=== PATIENT | female | born 1960 | race Caucasian/White ===

== ENCOUNTER 2017-07-06 14:33 | Inpatient (IN) | payer MEDICAID ==
[~2017-07-06] VITALS: Ht 177.8 cm; Wt 91.6 kg
[~2017-07-06 14:33] MED LIST: APAP/HYDROCODON1 T13 PO; COL100 PO; DIVALPROEX SOD500 M3 PO; FERROUS SULFAT325 M2 PO; FUROSEMIDE40 MG PO; LAC PO; LAXATIVE5 M1 RC; LEV500 PO; METOPROLOL SUC100 M1 PO; MULTI VITAMINS1 TA1 PO; NATURE'S BLEND400 I2 PO; NEU300 PO; NORCO1 TA2 PO; OYSTER SHELL C500 M3 PO; ROBL; SANOINT; SEROQUEL100 MG PO; TOPAMAX100 MG; ZESTRIL20 MG PO; ZOCOR10 MG PO
[2017-07-06 15:35] LABS: BASOPHIL % 0.4 % (0-2); PLATELET COUNT 230 x10^3mcL (130-400); RED CELL DISTRIBUTION WIDTH 14.7 % (11.5-14.5)
[2017-07-06 15:37] LABS: CALCIUM 9.1 mg/dL (8.5-10.1); CARBON DIOXIDE 27.8 mmol/L (21-32); CREATININE SERUM 1.1 mg/dL (0.6-1.0); POTASSIUM SERUM 4.9 mmol/L (3.5-5.1)
[2017-07-06 15:41] LABS: BILIRUBIN TOTAL 0.19 mg/dL (0.20-1.00); TOTAL PROTEIN, SERUM 7.6 g/dL (6.4-8.2)
[2017-07-06 15:42] LABS: ALBUMIN 2.8 g/dL (3.4-5.0)
[2017-07-06 15:53] LABS: microscopic required? YES; urine erythrocyte TRACE (NEGATIVE)
[2017-07-06] MEDS ORDERED: MULTIVITAMIN1 SGL PO (16:59)
[2017-07-06] MEDS ORDERED: ASPIR LOW81 MG PO (17:00)
[2017-07-06] MEDS ORDERED: POTASSIUM CHLO10 MEQ PO (17:00)
[2017-07-06] MEDS ORDERED: LASIX40 MG PO (17:00)
[2017-07-06] MEDS ORDERED: NEU300 PO (17:01)
[2017-07-06] MEDS ORDERED: SANOINT (17:02)
[2017-07-06] MEDS ORDERED: DEPAKOTE500 MG PO (17:02)
[2017-07-06] MEDS ORDERED: FERROUS SULFAT325 M2 PO (17:02)
[2017-07-06] MEDS ORDERED: ZOCOR10 MG PO (17:03)
[2017-07-06] MEDS ORDERED: TOPIRAMATE200 M1 PO (17:03)
[2017-07-06] MEDS ORDERED: NATURE'S BLEND500 M3 PO (17:04)
[2017-07-06] MEDS ORDERED: SEROQUEL100 MG PO (17:04)
[2017-07-06] MEDS ORDERED: LISINOPRIL10 MG PO (17:05)
[2017-07-06] MEDS ORDERED: LAXATIVE5 M1 RC (17:06)
[2017-07-06] MEDS ORDERED: EXPECTORANT DM120 ML PO (17:08)
[2017-07-06] MEDS ORDERED: ANUSOL-HC25 MG/SUPP RC (17:09)
[2017-07-06 17:57] VITALS: BP 115/55
[2017-07-06 18:02] VITALS: BP 115/55
[2017-07-06 19:35] LABS: AMPHETAMINE QUAL UR NONE DETECTED (NEG <=1000)
[2017-07-06 19:41] LABS: MAGNESIUM 2.4 mg/dL (1.8-2.4); PHOSPHOROUS 4.4 mg/dL (2.5-4.9)
[2017-07-06 19:42] LABS: CHOLESTEROL/HDL RATIO 3.6
[2017-07-06 19:50] LABS: T3 TOTAL 0.65 ng/mL
[2017-07-06 19:51] LABS: FREE T4 0.66 ng/dL (0.76-1.46); FREE THYROXINE INDEX 1.8 ug/dL (1.4-4.5); T4(THYROXINE) 4.9 ug/dL (4.7-13.3)
[2017-07-06 21:21] VITALS: BP 134/86
[2017-07-07 02:30] VITALS: Ht 177.8 cm; Wt 91.6 kg
[2017-07-07 04:51] VITALS: BP 108/56
[2017-07-07 06:12] VITALS: BP 122/60
[2017-07-07 07:31] LABS: BASOPHIL % 0.4 % (0-2); PLATELET COUNT 217 x10^3mcL (130-400); RED CELL DISTRIBUTION WIDTH 14.1 % (11.5-14.5)
[2017-07-07 07:51] LABS: CALCIUM 8.6 mg/dL (8.5-10.1); CARBON DIOXIDE 23.7 mmol/L (21-32); CHLORIDE SERUM 106 mmol/L (98-107); CREATININE SERUM 0.8 mg/dL (0.6-1.0); GFR1 > 60 mL/min; GLUCOSE SERUM 97 mg/dL (74-106); MAGNESIUM 2.1 mg/dL (1.8-2.4); POTASSIUM SERUM 4.9 mmol/L (3.5-5.1); SODIUM SERUM 137 mmol/L (136-145)
[2017-07-07 09:02] VITALS: BP 117/76
[2017-07-07 13:18] VITALS: BP 131/60
[2017-07-07 17:17] VITALS: BP 127/53
[2017-07-07 21:01] VITALS: BP 152/65
[2017-07-08 06:41] VITALS: BP 130/70
[2017-07-08 07:04] LABS: CALCIUM 8.5 mg/dL (8.5-10.1); CARBON DIOXIDE 23.1 mmol/L (21-32); CHLORIDE SERUM 107 mmol/L (98-107); CREATININE SERUM 0.6 mg/dL (0.6-1.0); GFR1 > 60 mL/min; GLUCOSE SERUM 93 mg/dL (74-106); POTASSIUM SERUM 4.4 mmol/L (3.5-5.1); SODIUM SERUM 137 mmol/L (136-145)
[2017-07-08 09:17] VITALS: BP 132/55
[2017-07-08 12:27] VITALS: BP 109/47
[2017-07-08 16:39] VITALS: BP 141/78
[2017-07-08 21:53] VITALS: BP 142/82
[2017-07-09 05:16] VITALS: BP 139/67
[2017-07-09 06:48] LABS: BASOPHIL % 0.2 % (0-2); PLATELET COUNT 185 x10^3mcL (130-400); RED CELL DISTRIBUTION WIDTH 13.7 % (11.5-14.5)
[2017-07-09 07:07] LABS: CARBON DIOXIDE 22.3 mmol/L (21-32); CHLORIDE SERUM 103 mmol/L (98-107); CREATININE SERUM 0.6 mg/dL (0.6-1.0); GFR1 > 60 mL/min; GLUCOSE SERUM 88 mg/dL (74-106); POTASSIUM SERUM 4.4 mmol/L (3.5-5.1); SODIUM SERUM 131 mmol/L (136-145)
[2017-07-09 09:45] VITALS: BP 132/64
[2017-07-09 17:05] VITALS: BP 170/83
[2017-07-09 17:48] VITALS: BP 136/63
[2017-07-09 21:00] VITALS: BP 147/73
[2017-07-10 04:00] VITALS: BP 144/82
[2017-07-10 06:52] LABS: BASOPHIL % 0.4 % (0-2); PLATELET COUNT 191 x10^3mcL (130-400); RED CELL DISTRIBUTION WIDTH 13.9 % (11.5-14.5)
[2017-07-10 07:07] LABS: CALCIUM 8.2 mg/dL (8.5-10.1); CARBON DIOXIDE 21.7 mmol/L (21-32); CHLORIDE SERUM 101 mmol/L (98-107); CREATININE SERUM 0.7 mg/dL (0.6-1.0); GFR1 > 60 mL/min; GLUCOSE SERUM 99 mg/dL (74-106); POTASSIUM SERUM 4.5 mmol/L (3.5-5.1); SODIUM SERUM 130 mmol/L (136-145)
[2017-07-10 09:09] VITALS: BP 151/78
[2017-07-10] MEDS ORDERED: LAC30L PO (12:44)
[2017-07-10] MEDS ORDERED: METOPROLOL TART25 M1 PO (12:44)
[2017-07-10 13:07] VITALS: BP 151/78
[2017-07-10 17:45] VITALS: BP 145/71
== END 2017-07-10 18:27 | DRG 279 ==
LOC: ED 14:33 → DU 16:37
PROVIDERS: Emergency Medicine; Family Medicine; ADMIT Family Medicine
DX: K72.90 Hepatic failure, unspecified without coma (principal); N17.0 Acute kidney failure with tubular necrosis; E43 Unspecified severe protein-calorie malnutrition; N39.0 Urinary tract infection, site not specified; F72 Severe intellectual disabilities; B96.20 Unspecified Escherichia coli [E. coli] as the cause of diseases classified elsewhere; E11.9 Type 2 diabetes mellitus without complications; I10 Essential (primary) hypertension; I48.92 Unspecified atrial flutter; F88 Other disorders of psychological development; E78.5 Hyperlipidemia, unspecified; D53.9 Nutritional anemia, unspecified; E78.00 Pure hypercholesterolemia, unspecified; Z68.31 Body mass index [BMI] 31.0-31.9, adult
CPT/HCPCS: 82962; 83880; 84439; 86580; J0696; J1956; J7030; J7040

== ENCOUNTER 2017-07-19 12:44 | Emergency (ER) | payer MEDICAID ==
[~2017-07-19] VITALS: Ht 157.5 cm; Wt 95.7 kg
[~2017-07-19 12:44] MED LIST changes: +ANUSOL-HC25 MG/SUPP RC; +ASPIR LOW81 MG PO; +DEPAKOTE500 MG PO; +EXPECTORANT DM120 ML PO; +LAC30L PO; +LASIX40 MG PO; +LISINOPRIL10 MG PO; +METOPROLOL TART25 M1 PO; +MULTIVITAMIN1 SGL PO; +NATURE'S BLEND500 M3 PO; +POTASSIUM CHLO10 MEQ PO; +TOPIRAMATE200 M1 PO
[2017-07-19 14:50] LABS: BASOPHIL % 0.5 % (0-2); PLATELET COUNT 272 x10^3mcL (130-400); RED CELL DISTRIBUTION WIDTH 13.9 % (11.5-14.5)
[2017-07-19 15:04] LABS: CALCIUM 9.2 mg/dL (8.5-10.1); CARBON DIOXIDE 31.2 mmol/L (21-32); CHLORIDE SERUM 97 mmol/L (98-107); CREATININE SERUM 0.6 mg/dL (0.6-1.0); GFR1 > 60 mL/min; GLUCOSE SERUM 93 mg/dL (74-106); POTASSIUM SERUM 4.2 mmol/L (3.5-5.1); SODIUM SERUM 133 mmol/L (136-145)
[2017-07-19 15:09] LABS: ALBUMIN 2.8 g/dL (3.4-5.0); ALKALINE PHOSPHATASE 66 U/L (46-116); ALT/SGPT 14 U/L (14-59); AST/SGOT 9 U/L (15-37); BILIRUBIN TOTAL 0.2 mg/dL (0.20-1.00); TOTAL PROTEIN, SERUM 7.2 g/dL (6.4-8.2)
[2017-07-19 18:17] VITALS: BP 134/79
== END 2017-07-19 18:17 | disposition home or self-care (01) ==
LOC: ED 12:44
PROVIDERS: Emergency Medicine
DX: R76.11 Nonspecific reaction to tuberculin skin test without active tuberculosis (principal); I10 Essential (primary) hypertension; E78.5 Hyperlipidemia, unspecified; Z88.0 Allergy status to penicillin; Z88.1 Allergy status to other antibiotic agents; Z79.899 Other long term (current) drug therapy
CPT/HCPCS: 36415

== ENCOUNTER 2017-07-24 23:40 | Emergency (ER) | payer MEDICAID ==
[2017-07-25 00:48] LABS: BASOPHIL % 0.4 % (0-2); PLATELET COUNT 193 x10^3mcL (130-400); RED CELL DISTRIBUTION WIDTH 14.5 % (11.5-14.5)
[2017-07-25 00:53] LABS: CALCIUM 8.7 mg/dL (8.5-10.1); CARBON DIOXIDE 26.5 mmol/L (21-32); CHLORIDE SERUM 93 mmol/L (98-107); CREATININE SERUM 0.8 mg/dL (0.6-1.0); GFR1 > 60 mL/min; GLUCOSE SERUM 88 mg/dL (74-106); POTASSIUM SERUM 4.7 mmol/L (3.5-5.1); SODIUM SERUM 126 mmol/L (136-145)
[2017-07-25 01:08] LABS: ALBUMIN 2.6 g/dL (3.4-5.0); ALKALINE PHOSPHATASE 59 U/L (46-116); ALT/SGPT 11 U/L (14-59); AST/SGOT 12 U/L (15-37); BILIRUBIN TOTAL 0.2 mg/dL (0.20-1.00); TOTAL PROTEIN, SERUM 6.8 g/dL (6.4-8.2)
[2017-07-25 01:54] LABS: microscopic required? YES; urine erythrocyte 1+ (NEGATIVE)
[2017-07-25 06:44] VITALS: BP 107/65
== END 2017-07-25 06:44 | disposition home or self-care (01) ==
LOC: ED 23:40
PROVIDERS: Emergency Medicine
DX: I95.9 Hypotension, unspecified (principal); G40.909 Epilepsy, unspecified, not intractable, without status epilepticus; I10 Essential (primary) hypertension; E78.5 Hyperlipidemia, unspecified; F72 Severe intellectual disabilities; Z88.0 Allergy status to penicillin; Z88.1 Allergy status to other antibiotic agents
CPT/HCPCS: 83880; J7030; Q0092

== ENCOUNTER 2019-05-12 09:58 | Emergency (ER) | payer MEDICAID ==
[~2019-05-12] VITALS: Ht 172.7 cm; Wt 113.4 kg
[2019-05-12 10:08] VITALS: Ht 172.7 cm; Wt 113.4 kg
[2019-05-12 14:27] VITALS: BP 138/89
== END 2019-05-12 14:27 | disposition home or self-care (01) ==
LOC: ED 09:58
DX: S80.12XA Contusion of left lower leg, initial encounter (principal); I10 Essential (primary) hypertension; Z88.0 Allergy status to penicillin; Z88.1 Allergy status to other antibiotic agents; Z86.69 Personal history of other diseases of the nervous system and sense organs; W18.30XA Fall on same level, unspecified, initial encounter; Y93.89 Activity, other specified; Y92.89 Other specified places as the place of occurrence of the external cause; Y99.8 Other external cause status
CPT/HCPCS: 90715; J1630; J2250

== ENCOUNTER 2019-06-15 15:44 | Emergency (ER) | payer MEDICAID ==
[~2019-06-15] VITALS: Ht 165.1 cm; Wt 136.1 kg
[2019-06-15 15:54] VITALS: Ht 165.1 cm; Wt 136.1 kg
[2019-06-15 16:35] LABS: BASOPHIL % 0.4 % (0-2); PLATELET COUNT 170 x10^3mcL (130-400); RED CELL DISTRIBUTION WIDTH 14.5 % (11.5-14.5)
[2019-06-15 16:49] LABS: CALCIUM 7.9 mg/dL (8.5-10.1); CARBON DIOXIDE 23.6 mmol/L (21-32); CHLORIDE SERUM 98 mmol/L (98-107); CREATININE SERUM 0.9 mg/dL (0.6-1.0); GFR1 > 60 mL/min; GLUCOSE SERUM 169 mg/dL (74-106); POTASSIUM SERUM 3.6 mmol/L (3.5-5.1); SODIUM SERUM 132 mmol/L (136-145)
[2019-06-15 17:04] LABS: ALBUMIN 2.7 g/dL (3.4-5.0); ALKALINE PHOSPHATASE 73 U/L (46-116); ALT/SGPT 20 U/L (14-59); AST/SGOT 7 U/L (15-37); BILIRUBIN TOTAL 0.35 mg/dL (0.20-1.00); TOTAL PROTEIN, SERUM 7.4 g/dL (6.4-8.2)
[2019-06-15 17:19] LABS: UA SPECIFIC GRAVITY 1.015 (1.005-1.035); microscopic required? YES; urine erythrocyte 3+ (NEGATIVE)
[2019-06-15 19:50] VITALS: BP 121/58
== END 2019-06-15 19:50 | disposition home or self-care (01) ==
LOC: ED 15:44
PROVIDERS: Emergency Medicine
DX: R53.1 Weakness (principal); N39.0 Urinary tract infection, site not specified; R21 Rash and other nonspecific skin eruption; F72 Severe intellectual disabilities; E66.9 Obesity, unspecified; I10 Essential (primary) hypertension; Z68.43 Body mass index [BMI] 50.0-59.9, adult; Z88.0 Allergy status to penicillin; Z88.1 Allergy status to other antibiotic agents
CPT/HCPCS: 36415; J3490; Q0092

== ENCOUNTER 2019-09-29 13:04 | Inpatient (IN) | payer MEDICAID ==
[~2019-09-29] VITALS: Ht 177.8 cm; Wt 114.0 kg
[2019-09-29 14:19] LABS: PLATELET COUNT 185 x10^3mcL (130-400)
[2019-09-29 14:33] LABS: RED CELL DISTRIBUTION WIDTH 14.7 % (11.5-14.5)
[2019-09-29 14:37] LABS: CALCIUM 8.6 mg/dL (8.5-10.1); CARBON DIOXIDE 26.8 mmol/L (21-32); CHLORIDE SERUM 105 mmol/L (98-107); CREATININE SERUM 0.9 mg/dL (0.6-1.0); GFR1 > 60 mL/min; GLUCOSE SERUM 183 mg/dL (74-106); POTASSIUM SERUM 4.2 mmol/L (3.5-5.1); SODIUM SERUM 142 mmol/L (136-145)
[2019-09-29 14:39] LABS: ALKALINE PHOSPHATASE 92 U/L (46-116); ALT/SGPT 20 U/L (14-59); AST/SGOT 13 U/L (15-37); BILIRUBIN TOTAL 0.3 mg/dL (0.20-1.00); LIPASE 85 IU/L (73-393); TOTAL PROTEIN, SERUM 7.6 g/dL (6.4-8.2)
[2019-09-29 14:40] LABS: ALBUMIN 2.3 g/dL (3.4-5.0)
[2019-09-29 15:06] LABS: BAND NEUTROPHIL 6 % (0-10); BASOPHIL 0 % (0-2); MONOCYTE 7 % (0-7); SEGMENTED NEUTROPHILS 81 % (37-75); rbc morphology (normal/abnorm) NORMAL (NORMAL)
[2019-09-29 15:35] LABS: microscopic required? YES; urine erythrocyte TRACE (NEGATIVE)
[2019-09-29 17:11] LABS: MAGNESIUM 2.1 mg/dL (1.8-2.4); PHOSPHOROUS 3.8 mg/dL (2.5-4.9)
[2019-09-29 17:12] LABS: CHOLESTEROL/HDL RATIO 3.7
[2019-09-29 17:18] LABS: FREE T4 0.69 ng/dL (0.76-1.46); FREE THYROXINE INDEX 1.7 ug/dL (1.4-4.5); T4(THYROXINE) 5.3 ug/dL (4.7-13.3)
[2019-09-29 17:33] LABS: T3 TOTAL 0.7 ng/mL
[2019-09-29 18:10] VITALS: BP 172/71
[2019-09-29 19:39] VITALS: BP 160/70
[2019-09-30 04:40] VITALS: BP 160/70
[2019-09-30 06:51] LABS: PLATELET COUNT 146 x10^3mcL (130-400)
[2019-09-30 06:57] LABS: RED CELL DISTRIBUTION WIDTH 15.4 % (11.5-14.5)
[2019-09-30 07:29] LABS: CARBON DIOXIDE 18.8 mmol/L (21-32); CHLORIDE SERUM 108 mmol/L (98-107); CREATININE SERUM 0.9 mg/dL (0.6-1.0); GFR1 > 60 mL/min; GLUCOSE SERUM 205 mg/dL (74-106); PHOSPHOROUS 2.2 mg/dL (2.5-4.9); POTASSIUM SERUM 3.4 mmol/L (3.5-5.1); SODIUM SERUM 139 mmol/L (136-145)
[2019-09-30 07:47] VITALS: BP 109/53
[2019-09-30 11:26] VITALS: BP 127/59
[2019-09-30 14:58] LABS: BAND NEUTROPHIL 9 % (0-10); BASOPHIL 0 % (0-2); MONOCYTE 8 % (0-7); SEGMENTED NEUTROPHILS 73 % (37-75)
[2019-09-30 15:00] LABS: rbc morphology (normal/abnorm) NORMAL (NORMAL)
[2019-09-30 15:35] VITALS: BP 137/61
[2019-09-30 20:00] VITALS: BP 157/78
[2019-09-30 23:16] VITALS: BP 135/63
[2019-10-01 03:53] VITALS: BP 145/70
[2019-10-01 05:57] LABS: PLATELET COUNT 164 x10^3mcL (130-400)
[2019-10-01 06:17] LABS: CALCIUM 7.8 mg/dL (8.5-10.1); CARBON DIOXIDE 19.8 mmol/L (21-32); CHLORIDE SERUM 109 mmol/L (98-107); CREATININE SERUM 0.8 mg/dL (0.6-1.0); GFR1 > 60 mL/min; GLUCOSE SERUM 175 mg/dL (74-106); MAGNESIUM 1.7 mg/dL (1.8-2.4); PHOSPHOROUS 1.9 mg/dL (2.5-4.9); POTASSIUM SERUM 3.6 mmol/L (3.5-5.1); SODIUM SERUM 139 mmol/L (136-145)
[2019-10-01 07:20] VITALS: BP 153/92
[2019-10-01 08:38] LABS: BAND NEUTROPHIL 9 % (0-10); BASOPHIL 0 % (0-2); MONOCYTE 11 % (0-7); SEGMENTED NEUTROPHILS 75 % (37-75)
[2019-10-01 08:39] LABS: PLATELET MORPHOLOGY PLATELETS DECREASED; rbc morphology (normal/abnorm) ABNORMAL (NORMAL)
[2019-10-01 10:36] LABS: IRON 43 ug/dL (50-170)
[2019-10-01 10:37] LABS: TOTAL IRON BINDING CAPACITY 234 ug/dL (250-450)
[2019-10-01 11:33] VITALS: BP 138/71
[2019-10-01 12:55] LABS: C REACTIVE PROTEIN 14.4 mg/dL (<=0.9)
[2019-10-01 15:08] VITALS: BP 120/69
[2019-10-01 20:00] VITALS: BP 142/68
[2019-10-02] VITALS: BP 153/74
[2019-10-02 04:00] VITALS: BP 163/72
[2019-10-02 05:17] LABS: CALCIUM 8.4 mg/dL (8.5-10.1); CARBON DIOXIDE 17.4 mmol/L (21-32); CHLORIDE SERUM 107 mmol/L (98-107); CREATININE SERUM 0.8 mg/dL (0.6-1.0); GFR1 > 60 mL/min; GLUCOSE SERUM 152 mg/dL (74-106); PHOSPHOROUS 2.5 mg/dL (2.5-4.9); POTASSIUM SERUM 3.8 mmol/L (3.5-5.1); SODIUM SERUM 136 mmol/L (136-145)
[2019-10-02 07:15] VITALS: BP 142/82
[2019-10-02 07:27] LABS: PLATELET COUNT 249 x10^3mcL (130-400)
[2019-10-02 07:40] LABS: RED CELL DISTRIBUTION WIDTH 14.8 % (11.5-14.5)
[2019-10-02 09:26] VITALS: Ht 177.8 cm; Wt 114.0 kg
[2019-10-02 10:12] LABS: BAND NEUTROPHIL 7 % (0-10); MONOCYTE 19 % (0-7); SEGMENTED NEUTROPHILS 70 % (37-75)
[2019-10-02 10:14] LABS: PLATELET MORPHOLOGY PLATELETS DECREASED; rbc morphology (normal/abnorm) ABNORMAL (NORMAL)
[2019-10-02 11:16] VITALS: BP 122/52
[2019-10-02 16:10] VITALS: BP 129/64
[2019-10-02 20:00] VITALS: BP 140/78
[2019-10-03] VITALS: BP 137/67
[2019-10-03 04:00] VITALS: BP 152/74
[2019-10-03 05:35] LABS: CALCIUM 8.7 mg/dL (8.5-10.1); CARBON DIOXIDE 21.3 mmol/L (21-32); MAGNESIUM 2.2 mg/dL (1.8-2.4); PHOSPHOROUS 2.6 mg/dL (2.5-4.9); POTASSIUM SERUM 3.5 mmol/L (3.5-5.1)
[2019-10-03 05:51] LABS: PLATELET COUNT 229 x10^3mcL (130-400)
[2019-10-03 05:52] LABS: RED CELL DISTRIBUTION WIDTH 15.2 % (11.5-14.5)
[2019-10-03 09:00] VITALS: BP 147/80
[2019-10-03 09:30] LABS: MONOCYTE 7 % (0-7); SEGMENTED NEUTROPHILS 81 % (37-75)
[2019-10-03 09:47] LABS: rbc morphology (normal/abnorm) ABNORMAL (NORMAL); tear drop cell (dacryocyte) 1+
[2019-10-03 09:48] LABS: PLATELET MORPHOLOGY PLATELETS NORMAL
[2019-10-03 12:30] VITALS: BP 154/90
[2019-10-03 16:00] VITALS: BP 113/85
[2019-10-03 20:00] VITALS: BP 118/67
[2019-10-04] VITALS: BP 125/59
[2019-10-04 06:06] LABS: CALCIUM 8.6 mg/dL (8.5-10.1); CARBON DIOXIDE 22.1 mmol/L (21-32); MAGNESIUM 2.1 mg/dL (1.8-2.4); PHOSPHOROUS 4.3 mg/dL (2.5-4.9); POTASSIUM SERUM 3.9 mmol/L (3.5-5.1)
[2019-10-04 06:33] LABS: BASOPHIL % 0.1 % (0-2); PLATELET COUNT 347 x10^3mcL (130-400)
[2019-10-04 06:41] LABS: RED CELL DISTRIBUTION WIDTH 15.4 % (11.5-14.5)
[2019-10-04 12:00] VITALS: BP 112/66
[2019-10-04 17:00] VITALS: BP 109/55
[2019-10-04 20:27] VITALS: BP 99/53
[2019-10-04 23:55] VITALS: BP 109/46
[2019-10-05 03:17] VITALS: BP 92/42
[2019-10-05 05:00] LABS: CALCIUM 8.1 mg/dL (8.5-10.1); CHLORIDE SERUM 103 mmol/L (98-107); CREATININE SERUM 0.8 mg/dL (0.6-1.0); GFR1 > 60 mL/min; GLUCOSE SERUM 143 mg/dL (74-106); MAGNESIUM 1.9 mg/dL (1.8-2.4); PHOSPHOROUS 3.1 mg/dL (2.5-4.9); POTASSIUM SERUM 4.1 mmol/L (3.5-5.1); SODIUM SERUM 135 mmol/L (136-145)
[2019-10-05 05:03] LABS: PLATELET COUNT 337 x10^3mcL (130-400)
[2019-10-05 05:11] LABS: RED CELL DISTRIBUTION WIDTH 15.4 % (11.5-14.5)
[2019-10-05 06:22] LABS: BAND NEUTROPHIL 4 % (0-10); BASOPHIL 0 % (0-2); MONOCYTE 9 % (0-7); SEGMENTED NEUTROPHILS 75 % (37-75)
[2019-10-05 06:24] LABS: PLATELET MORPHOLOGY PLATELETS INCREASED; rbc morphology (normal/abnorm) ABNORMAL (NORMAL)
[2019-10-05 07:29] VITALS: BP 128/58
[2019-10-05 08:22] VITALS: BP 128/58
[2019-10-05 12:29] VITALS: BP 102/52
[2019-10-05 20:35] VITALS: BP 100/60
[2019-10-06 06:15] VITALS: BP 122/53
[2019-10-06 07:55] LABS: CALCIUM 8.6 mg/dL (8.5-10.1); CARBON DIOXIDE 22.5 mmol/L (21-32); CHLORIDE SERUM 102 mmol/L (98-107); CREATININE SERUM 0.7 mg/dL (0.6-1.0); GFR1 > 60 mL/min; GLUCOSE SERUM 142 mg/dL (74-106); MAGNESIUM 2.2 mg/dL (1.8-2.4); PHOSPHOROUS 3.5 mg/dL (2.5-4.9); POTASSIUM SERUM 4.8 mmol/L (3.5-5.1); SODIUM SERUM 134 mmol/L (136-145)
[2019-10-06 07:58] LABS: PLATELET COUNT 167 x10^3mcL (130-400)
[2019-10-06 08:02] LABS: RED CELL DISTRIBUTION WIDTH 15.3 % (11.5-14.5)
[2019-10-06 08:59] VITALS: BP 111/50
[2019-10-06 11:19] LABS: BAND NEUTROPHIL 9 % (0-10); BASOPHIL 0 % (0-2); METAMYELOCTE 3 % (0-2); MONOCYTE 6 % (0-7); MYELOCYTE 3 % (0-2); SEGMENTED NEUTROPHILS 64 % (37-75)
[2019-10-06 11:22] LABS: rbc morphology (normal/abnorm) ABNORMAL (NORMAL)
[2019-10-06 13:48] VITALS: BP 116/54
[2019-10-06 16:45] VITALS: BP 126/49
[2019-10-06 21:12] VITALS: BP 148/64
[2019-10-07 05:30] VITALS: BP 114/60
[2019-10-07 07:48] VITALS: BP 135/53
[2019-10-07 08:17] LABS: CALCIUM 8.8 mg/dL (8.5-10.1); CARBON DIOXIDE 25.5 mmol/L (21-32); CHLORIDE SERUM 101 mmol/L (98-107); CREATININE SERUM 0.8 mg/dL (0.6-1.0); GFR1 > 60 mL/min; GLUCOSE SERUM 129 mg/dL (74-106); MAGNESIUM 2.2 mg/dL (1.8-2.4); PHOSPHOROUS 3.9 mg/dL (2.5-4.9); POTASSIUM SERUM 4.2 mmol/L (3.5-5.1); SODIUM SERUM 136 mmol/L (136-145)
[2019-10-07 08:19] LABS: PLATELET COUNT 444 x10^3mcL (130-400); RED CELL DISTRIBUTION WIDTH 14.9 % (11.5-14.5)
[2019-10-07 11:02] LABS: BAND NEUTROPHIL 8 % (0-10); BASOPHIL 0 % (0-2); METAMYELOCTE 1 % (0-2); MONOCYTE 6 % (0-7); MYELOCYTE 2 % (0-2); SEGMENTED NEUTROPHILS 61 % (37-75)
[2019-10-07 11:03] LABS: PLATELET MORPHOLOGY LARGE PLATELET SEEN; rbc morphology (normal/abnorm) NORMAL (NORMAL)
[2019-10-07 12:35] VITALS: BP 107/41
[2019-10-07 16:39] VITALS: BP 119/43
[2019-10-07 19:20] VITALS: BP 107/46
[2019-10-08 05:50] VITALS: BP 124/50
[2019-10-08 07:29] LABS: CALCIUM 8.6 mg/dL (8.5-10.1); CARBON DIOXIDE 25.4 mmol/L (21-32); CHLORIDE SERUM 100 mmol/L (98-107); CREATININE SERUM 0.7 mg/dL (0.6-1.0); GFR1 > 60 mL/min; GLUCOSE SERUM 128 mg/dL (74-106); MAGNESIUM 2.2 mg/dL (1.8-2.4); PHOSPHOROUS 3.3 mg/dL (2.5-4.9); POTASSIUM SERUM 4.2 mmol/L (3.5-5.1); SODIUM SERUM 134 mmol/L (136-145)
[2019-10-08 07:35] VITALS: BP 106/64
[2019-10-08 07:35] LABS: PLATELET COUNT 469 x10^3mcL (130-400)
[2019-10-08 10:18] LABS: BAND NEUTROPHIL 9 % (0-10); BASOPHIL 0 % (0-2); MONOCYTE 6 % (0-7); MYELOCYTE 1 % (0-2); SEGMENTED NEUTROPHILS 57 % (37-75)
[2019-10-08 10:19] LABS: PLATELET MORPHOLOGY PLATELETS DECREASED; rbc morphology (normal/abnorm) ABNORMAL (NORMAL)
[2019-10-08 12:02] VITALS: BP 130/55
[2019-10-08] MEDS ORDERED: ZYV600 PO (14:45)
[2019-10-08] MEDS ORDERED: COR200 PO (14:45)
[2019-10-08] MEDS ORDERED: METOPROLOL TART25 M1 PO (14:46)
[2019-10-08] MEDS ORDERED: LEVAQUIN500 M1 PO (14:56)
[2019-10-08 15:24] VITALS: BP 142/58
[2019-10-08 16:01] VITALS: BP 102/57
== END 2019-10-08 17:57 | DRG 201 ==
LOC: ED 13:04 → DU 16:13 → IC 16:13 → DU 18:03 → IC 09-30 05:31 → DU 10-05 15:45
PROVIDERS: Emergency Medicine; Internal Medicine; Internal Medicine Gastroenterology; ADMIT Internal Medicine
DX: I48.0 Paroxysmal atrial fibrillation (principal); N17.0 Acute kidney failure with tubular necrosis; E43 Unspecified severe protein-calorie malnutrition; F72 Severe intellectual disabilities; I95.9 Hypotension, unspecified; Z68.41 Body mass index [BMI] 40.0-44.9, adult; E86.0 Dehydration; E11.9 Type 2 diabetes mellitus without complications; I48.92 Unspecified atrial flutter; I10 Essential (primary) hypertension; F63.89 Other impulse disorders; F88 Other disorders of psychological development; G80.9 Cerebral palsy, unspecified; G40.909 Epilepsy, unspecified, not intractable, without status epilepticus; E78.5 Hyperlipidemia, unspecified; Z79.84 Long term (current) use of oral hypoglycemic drugs; Z79.82 Long term (current) use of aspirin; Z99.3 Dependence on wheelchair
CPT/HCPCS: 36600; 82962; 83880; 84439; 92526-GN; 92610-GN; 97110-GP; 97164; 97530-GP; G0378; G0480; J0278; J0282; J0360; J0770; J1200; J1630; J1815; J1940; J1956; J2060; J2185; J2270; J2930; J3370; J3490; J7030; J7042; J7060; J7644; Q0092; Q9967

== ENCOUNTER 2020-07-06 12:52 | Inpatient (IN) | payer OTHER, SELFPAY ==
[~2020-07-06] VITALS: Ht 162.6 cm; Wt 102.9 kg
[~2020-07-06 12:52] MED LIST changes: +COR200 PO; +LEVAQUIN500 M1 PO; +ZYV600 PO
[2020-07-06 12:56] VITALS: Ht 162.6 cm; Wt 102.9 kg
[2020-07-06 14:03] LABS: microscopic required? NO
[2020-07-06 14:05] LABS: BASOPHIL % 0.2 % (0-2); PLATELET COUNT 188 x10^3mcL (130-400)
[2020-07-06 14:09] LABS: RED CELL DISTRIBUTION WIDTH 16.8 % (11.5-14.5)
[2020-07-06 14:13] LABS: UA SPECIFIC GRAVITY 1.015 (1.005-1.035); urine erythrocyte NEGATIVE (NEGATIVE)
[2020-07-06 14:20] LABS: CALCIUM 8.6 mg/dL (8.5-10.1); CARBON DIOXIDE 28.2 mmol/L (21-32); CHLORIDE SERUM 100 mmol/L (98-107); CREATININE SERUM 1.1 mg/dL (0.6-1.0); GFR1 54 mL/min; GLUCOSE SERUM 155 mg/dL (74-106); POTASSIUM SERUM 3.3 mmol/L (3.5-5.1); SODIUM SERUM 137 mmol/L (136-145)
[2020-07-06 14:22] LABS: ALBUMIN 2.4 g/dL (3.4-5.0)
[2020-07-06 14:45] LABS: BILIRUBIN TOTAL 0.26 mg/dL (0.20-1.00)
[2020-07-06 14:46] LABS: ALT/SGPT 225 U/L (14-59); AST/SGOT 272 U/L (15-37)
[2020-07-06 14:47] LABS: ALKALINE PHOSPHATASE 77 U/L (46-116)
[2020-07-06 14:48] LABS: LACTIC DEHYDROGENASE (LDH) 575 U/L (100-190)
[2020-07-06 15:36] LABS: CHOLESTEROL/HDL RATIO 3.1
[2020-07-06 15:41] LABS: FREE T4 0.43 ng/dL (0.76-1.46); FREE THYROXINE INDEX 1.9 ug/dL (1.4-4.5); T4(THYROXINE) 6.3 ug/dL (4.7-13.3)
[2020-07-06 18:24] VITALS: BP 102/57
[2020-07-06 20:28] VITALS: BP 103/57
[2020-07-06 21:34] VITALS: BP 97/52
[2020-07-06 21:54] VITALS: BP 118/68
[2020-07-07] VITALS (8 sets, daily range): BP systolic 83–126; BP diastolic 30–65
[2020-07-07 06:36] LABS: BASOPHIL % 0.2 % (0-2); PLATELET COUNT 171 x10^3mcL (130-400)
[2020-07-07 07:03] LABS: RED CELL DISTRIBUTION WIDTH 16.9 % (11.5-14.5)
[2020-07-07 07:04] LABS: C REACTIVE PROTEIN 13.7 mg/dL (<=0.9); CALCIUM 8.2 mg/dL (8.5-10.1); CHLORIDE SERUM 105 mmol/L (98-107); CREATININE SERUM 0.9 mg/dL (0.6-1.0); GFR1 > 60 mL/min; GLUCOSE SERUM 129 mg/dL (74-106); POTASSIUM SERUM 3.5 mmol/L (3.5-5.1); SODIUM SERUM 138 mmol/L (136-145)
[2020-07-07 10:26] LABS: ALBUMIN 2.1 g/dL (3.4-5.0); BILIRUBIN DIRECT 0.07 mg/dL (0.0-0.2); BILIRUBIN TOTAL 0.2 mg/dL (0.20-1.00); TOTAL PROTEIN, SERUM 5.9 g/dL (6.4-8.2)
[2020-07-07 14:37] LABS: T3 TOTAL 0.1 ng/mL
[2020-07-07 18:14] LABS: UA SPECIFIC GRAVITY 1.025 (1.005-1.035); microscopic required? YES; urine erythrocyte 3+ (NEGATIVE)
[2020-07-08 03:00] VITALS: BP 142/74
[2020-07-08 08:00] VITALS: BP 126/71
[2020-07-08 11:25] LABS: CALCIUM 8.6 mg/dL (8.5-10.1); CARBON DIOXIDE 28.1 mmol/L (21-32); CHLORIDE SERUM 105 mmol/L (98-107); CREATININE SERUM 0.8 mg/dL (0.6-1.0); GFR1 > 60 mL/min; GLUCOSE SERUM 136 mg/dL (74-106); POTASSIUM SERUM 3.8 mmol/L (3.5-5.1); SODIUM SERUM 139 mmol/L (136-145)
[2020-07-08 11:47] LABS: BASOPHIL % 0.2 % (0-2); PLATELET COUNT 205 x10^3mcL (130-400); RED CELL DISTRIBUTION WIDTH 16.7 % (11.5-14.5)
[2020-07-08 12:00] VITALS: BP 131/65
[2020-07-08 16:00] VITALS: BP 145/71
[2020-07-08 17:43] LABS: ALKALINE PHOSPHATASE 85 U/L (46-116); BILIRUBIN DIRECT 0.14 mg/dL (0.0-0.2); BILIRUBIN TOTAL 0.3 mg/dL (0.20-1.00); TOTAL PROTEIN, SERUM 6.8 g/dL (6.4-8.2)
[2020-07-08 17:44] LABS: ALBUMIN 2.4 g/dL (3.4-5.0); ALT/SGPT 1089 U/L (14-59); AST/SGOT 1063 U/L (15-37)
[2020-07-08 20:16] VITALS: BP 155/77
[2020-07-09 05:31] VITALS: BP 142/64
[2020-07-09 07:00] LABS: BASOPHIL % 0.3 % (0-2); PLATELET COUNT 225 x10^3mcL (130-400)
[2020-07-09 07:20] LABS: RED CELL DISTRIBUTION WIDTH 16.2 % (11.5-14.5)
[2020-07-09 07:28] LABS: ALKALINE PHOSPHATASE 103 U/L (46-116); ALT/SGPT 915 U/L (14-59); AST/SGOT 714 U/L (15-37); BILIRUBIN TOTAL 0.3 mg/dL (0.20-1.00); CALCIUM 8.9 mg/dL (8.5-10.1); CARBON DIOXIDE 22.1 mmol/L (21-32); CHLORIDE SERUM 106 mmol/L (98-107); CREATININE SERUM 0.8 mg/dL (0.6-1.0); GFR1 > 60 mL/min; GLUCOSE SERUM 111 mg/dL (74-106); POTASSIUM SERUM 3.5 mmol/L (3.5-5.1); SODIUM SERUM 140 mmol/L (136-145); TOTAL PROTEIN, SERUM 6.9 g/dL (6.4-8.2)
[2020-07-09 07:30] LABS: ALBUMIN 2.4 g/dL (3.4-5.0)
[2020-07-09 08:00] VITALS: BP 138/66
[2020-07-09 11:30] VITALS: BP 117/67
[2020-07-09 21:00] VITALS: BP 136/72
[2020-07-10 06:11] VITALS: BP 152/83
[2020-07-10 09:05] LABS: BASOPHIL % 0.3 % (0-2); PLATELET COUNT 235 x10^3mcL (130-400)
[2020-07-10 09:14] LABS: RED CELL DISTRIBUTION WIDTH 16.9 % (11.5-14.5)
[2020-07-10 09:44] VITALS: BP 172/45
[2020-07-10 09:53] LABS: CALCIUM 8.6 mg/dL (8.5-10.1); CARBON DIOXIDE 17.5 mmol/L (21-32); POTASSIUM SERUM 3.8 mmol/L (3.5-5.1)
[2020-07-10 10:33] LABS: ERYTHROCYTE SED RATE 79 mm/hr (0-30)
[2020-07-10 12:10] VITALS: BP 181/80
[2020-07-10 13:01] VITALS: BP 149/71
[2020-07-10 17:08] VITALS: BP 152/86
[2020-07-10 21:46] VITALS: BP 150/66
[2020-07-11 05:49] VITALS: BP 142/76
[2020-07-11 10:09] VITALS: BP 132/78
[2020-07-11 13:43] VITALS: BP 159/69
[2020-07-11 19:08] VITALS: BP 153/93
[2020-07-11 21:19] VITALS: BP 144/80
[2020-07-12 05:35] VITALS: BP 149/53
[2020-07-12 08:29] LABS: BASOPHIL % 0.3 % (0-2); PLATELET COUNT 244 x10^3mcL (130-400)
[2020-07-12 09:38] LABS: CALCIUM 8.9 mg/dL (8.5-10.1); CARBON DIOXIDE 16.9 mmol/L (21-32); CHLORIDE SERUM 104 mmol/L (98-107); CREATININE SERUM 0.9 mg/dL (0.6-1.0); GFR1 > 60 mL/min; GLUCOSE SERUM 128 mg/dL (74-106); POTASSIUM SERUM 4.2 mmol/L (3.5-5.1); SODIUM SERUM 135 mmol/L (136-145)
[2020-07-12 09:52] VITALS: BP 163/78
[2020-07-12 12:03] VITALS: BP 153/88
[2020-07-12 14:07] VITALS: BP 158/88
[2020-07-12 17:19] VITALS: BP 166/87
[2020-07-12 21:36] VITALS: BP 152/86
[2020-07-13 05:45] VITALS: BP 145/82
[2020-07-13 09:11] VITALS: BP 151/78
[2020-07-13 09:19] LABS: BASOPHIL % 0.4 % (0-2); PLATELET COUNT 294 x10^3mcL (130-400); RED CELL DISTRIBUTION WIDTH 16.9 % (11.5-14.5)
[2020-07-13 09:22] LABS: CALCIUM 8.6 mg/dL (8.5-10.1); CARBON DIOXIDE 18.6 mmol/L (21-32); CREATININE SERUM 1.1 mg/dL (0.6-1.0); POTASSIUM SERUM 3.6 mmol/L (3.5-5.1)
[2020-07-13 10:39] LABS: BILIRUBIN DIRECT 0.23 mg/dL (0.0-0.2); BILIRUBIN TOTAL 0.39 mg/dL (0.20-1.00); TOTAL PROTEIN, SERUM 7.1 g/dL (6.4-8.2)
[2020-07-13 10:40] LABS: ALBUMIN 2.5 g/dL (3.4-5.0)
[2020-07-13 11:58] VITALS: BP 142/91
[2020-07-13 17:43] VITALS: BP 156/81
[2020-07-13 20:54] VITALS: BP 159/93
[2020-07-14 05:58] VITALS: BP 161/72
[2020-07-14 08:06] LABS: BASOPHIL % 0.4 % (0-2); PLATELET COUNT 307 x10^3mcL (130-400)
[2020-07-14 08:43] VITALS: BP 111/84
[2020-07-14 08:45] LABS: CALCIUM 8.8 mg/dL (8.5-10.1); CARBON DIOXIDE 18.9 mmol/L (21-32); CHLORIDE SERUM 101 mmol/L (98-107); CREATININE SERUM 0.9 mg/dL (0.6-1.0); GFR1 > 60 mL/min; GLUCOSE SERUM 122 mg/dL (74-106); POTASSIUM SERUM 3.8 mmol/L (3.5-5.1); SODIUM SERUM 134 mmol/L (136-145)
[2020-07-14 12:15] VITALS: BP 130/73
[2020-07-14] MEDS ORDERED: FERL PO (14:21)
[2020-07-14] MEDS ORDERED: SYN25 PO (14:21)
[2020-07-14] MEDS ORDERED: DECADRON6 MG PO (14:22)
[2020-07-14] MEDS ORDERED: TOPIRAMATE200 M1 PO (14:23)
[2020-07-14] MEDS ORDERED: ELIQUIS2.5 MG PO (14:26)
[2020-07-14 16:23] VITALS: BP 144/90
[2020-07-14] MEDS ORDERED: BACDS PO (17:23)
== END 2020-07-14 17:42 | disposition home health service (06) | DRG 137 ==
LOC: ED 12:52 → DU 14:38 → IC 14:38 → DU 18:05 → IC 07-07 15:02 → DU 07-08 17:27
PROVIDERS: Emergency Medicine; Internal Medicine; Internal Medicine Gastroenterology; ADMIT Internal Medicine; ATTEND Internal Medicine
DX: U07.1 COVID-19 (principal); J96.91 Respiratory failure, unspecified with hypoxia; J15.8 Pneumonia due to other specified bacteria; E44.0 Moderate protein-calorie malnutrition; G80.9 Cerebral palsy, unspecified; E66.9 Obesity, unspecified; I48.91 Unspecified atrial fibrillation; J12.89 Other viral pneumonia; E78.5 Hyperlipidemia, unspecified; I10 Essential (primary) hypertension; Z88.0 Allergy status to penicillin; B96.20 Unspecified Escherichia coli [E. coli] as the cause of diseases classified elsewhere; Z88.8 Allergy status to other drugs, medicaments and biological substances; E87.6 Hypokalemia; F63.9 Impulse disorder, unspecified; G40.909 Epilepsy, unspecified, not intractable, without status epilepticus; N39.0 Urinary tract infection, site not specified; E03.9 Hypothyroidism, unspecified; Z68.33 Body mass index [BMI] 33.0-33.9, adult
CPT/HCPCS: 36600; 83880; 84439; 85378; 87804; 92526-GN; 92610-GN; G0378; J0456; J1100; J1650; J1956; J3490; J7030; J7040; J7042; J7050; Q0092; U0003-CS

== ENCOUNTER 2020-07-27 17:39 | Inpatient (IN) | payer OTHER, SELFPAY ==
[~2020-07-27] VITALS: Ht 162.6 cm; Wt 97.2 kg
[~2020-07-27 17:39] MED LIST changes: +BACDS PO; +DECADRON6 MG PO; +ELIQUIS2.5 MG PO; +FERL PO; +SYN25 PO
[2020-07-27 18:01] VITALS: Ht 162.6 cm; Wt 97.2 kg
[2020-07-27 18:30] LABS: PLATELET COUNT 202 x10^3mcL (130-400)
[2020-07-27 18:34] LABS: RED CELL DISTRIBUTION WIDTH 17.5 % (11.5-14.5)
[2020-07-27] MEDS ORDERED: SANOINT TP (18:36)
[2020-07-27] MEDS ORDERED: DULCOLAX10 M1 RC (18:37)
[2020-07-27] MEDS ORDERED: CALMOSEPTINE1 OIN (18:37)
[2020-07-27] MEDS ORDERED: SM TUSSIN DM PO (18:38)
[2020-07-27] MEDS ORDERED: ANUSOL-HC25 MG/SUPP RC (18:39)
[2020-07-27] MEDS ORDERED: THICK-IT1 EACH PO (18:39)
[2020-07-27 18:40] LABS: CALCIUM 8.4 mg/dL (8.5-10.1); CARBON DIOXIDE 27.3 mmol/L (21-32); CHLORIDE SERUM 101 mmol/L (98-107); CREATININE SERUM 1.1 mg/dL (0.6-1.0); GFR1 54 mL/min; GLUCOSE SERUM 152 mg/dL (74-106); POTASSIUM SERUM 3.2 mmol/L (3.5-5.1); SODIUM SERUM 139 mmol/L (136-145)
[2020-07-27] MEDS ORDERED: LASIX20 MG PO (18:41)
[2020-07-27] MEDS ORDERED: POTASSIUM CHLO20 ME4 PO (18:41)
[2020-07-27] MEDS ORDERED: TOPIRAMATE200 M1 PO (18:41)
[2020-07-27] MEDS ORDERED: QUETIAPINE FUM100 M1 PO (18:42)
[2020-07-27] MEDS ORDERED: VITAMIN C500 M6 PO (18:42)
[2020-07-27] MEDS ORDERED: A AND D OINTM42.5 GM TOP (18:43)
[2020-07-27] MEDS ORDERED: ZIN PO (18:43)
[2020-07-27] MEDS ORDERED: MASON NATURAL1000 IU PO (18:43)
[2020-07-27] MEDS ORDERED: KAPSPARGO SPRIN50 MG PO (18:44)
[2020-07-27] MEDS ORDERED: AMIODARONE HCL100 MG PO (18:44)
[2020-07-27] MEDS ORDERED: SIMVASTATIN5 M2 PO (18:45)
[2020-07-27 18:46] LABS: ALBUMIN 2.8 g/dL (3.4-5.0); ALKALINE PHOSPHATASE 91 U/L (46-116); ALT/SGPT 82 U/L (14-59); AST/SGOT 39 U/L (15-37); BILIRUBIN TOTAL 0.43 mg/dL (0.20-1.00); TOTAL PROTEIN, SERUM 6.7 g/dL (6.4-8.2)
[2020-07-27] MEDS ORDERED: VENELEX TP (18:46)
[2020-07-27] MEDS ORDERED: DEPAKOTE ER500 MG PO (18:46)
[2020-07-27] MEDS ORDERED: FEROSUL325 M1 PO (18:46)
[2020-07-27 18:52] LABS: BAND NEUTROPHIL 4 % (0-10); BASOPHIL 0 % (0-2); MONOCYTE 14 % (0-7); SEGMENTED NEUTROPHILS 39 % (37-75)
[2020-07-27 18:56] LABS: rbc morphology (normal/abnorm) NORMAL (NORMAL)
[2020-07-27 18:57] LABS: PLATELET MORPHOLOGY PLATELETS NORMAL
[2020-07-27 19:24] LABS: microscopic required? NO
[2020-07-27 19:30] LABS: urine erythrocyte NEGATIVE (NEGATIVE)
[2020-07-27 21:07] LABS: C REACTIVE PROTEIN 2.4 mg/dL (<=0.9)
[2020-07-27 21:15] LABS: CHOLESTEROL/HDL RATIO 3.1
[2020-07-27 21:17] LABS: T3 TOTAL 0.52 ng/mL
[2020-07-27 21:24] LABS: FREE T4 0.72 ng/dL (0.76-1.46); FREE THYROXINE INDEX 3.2 ug/dL (1.4-4.5); T4(THYROXINE) 10.1 ug/dL (4.7-13.3)
[2020-07-27 21:42] VITALS: BP 114/46
[2020-07-27 22:46] VITALS: BP 115/65
[2020-07-28 05:49] LABS: BASOPHIL % 0.6 % (0-2); PLATELET COUNT 203 x10^3mcL (130-400)
[2020-07-28 06:02] LABS: RED CELL DISTRIBUTION WIDTH 17.5 % (11.5-14.5)
[2020-07-28 06:12] LABS: BILIRUBIN TOTAL 0.4 mg/dL (0.20-1.00); CALCIUM 8.5 mg/dL (8.5-10.1); CARBON DIOXIDE 28.6 mmol/L (21-32); MAGNESIUM 2.5 mg/dL (1.8-2.4); POTASSIUM SERUM 3.9 mmol/L (3.5-5.1); TOTAL PROTEIN, SERUM 6.4 g/dL (6.4-8.2)
[2020-07-28 06:13] LABS: ALBUMIN 2.6 g/dL (3.4-5.0)
[2020-07-28 06:19] VITALS: BP 155/68
[2020-07-28 08:40] VITALS: BP 101/52
[2020-07-28 10:34] VITALS: BP 112/87
[2020-07-28 12:54] VITALS: BP 83/40
[2020-07-28 15:49] VITALS: BP 107/62
[2020-07-28 21:46] VITALS: BP 94/38
[2020-07-29 04:16] VITALS: BP 130/77
[2020-07-29 07:05] LABS: PLATELET COUNT 219 x10^3mcL (130-400)
[2020-07-29 07:15] LABS: RED CELL DISTRIBUTION WIDTH 17.3 % (11.5-14.5)
[2020-07-29 07:35] LABS: C REACTIVE PROTEIN 2.8 mg/dL (<=0.9); CALCIUM 8.6 mg/dL (8.5-10.1); CARBON DIOXIDE 26.9 mmol/L (21-32); CHLORIDE SERUM 100 mmol/L (98-107); CREATININE SERUM 0.8 mg/dL (0.6-1.0); GFR1 > 60 mL/min; GLUCOSE SERUM 148 mg/dL (74-106); POTASSIUM SERUM 4.1 mmol/L (3.5-5.1); SODIUM SERUM 135 mmol/L (136-145)
[2020-07-29 08:19] VITALS: BP 125/42
[2020-07-29 11:06] LABS: BAND NEUTROPHIL 6 % (0-10); BASOPHIL 0 % (0-2); MONOCYTE 13 % (0-7); SEGMENTED NEUTROPHILS 43 % (37-75)
[2020-07-29 11:07] LABS: PLATELET MORPHOLOGY PLATELETS NORMAL; rbc morphology (normal/abnorm) ABNORMAL (NORMAL)
[2020-07-29 11:49] VITALS: BP 93/73
[2020-07-29 16:48] VITALS: BP 133/43
[2020-07-29 20:41] VITALS: BP 118/46
[2020-07-30 05:34] VITALS: BP 129/58
[2020-07-30 07:35] LABS: BASOPHIL % 0.2 % (0-2); PLATELET COUNT 220 x10^3mcL (130-400)
[2020-07-30 07:49] LABS: RED CELL DISTRIBUTION WIDTH 17.4 % (11.5-14.5)
[2020-07-30 08:01] LABS: C REACTIVE PROTEIN 1.1 mg/dL (<=0.9); CALCIUM 8.7 mg/dL (8.5-10.1); CARBON DIOXIDE 25.1 mmol/L (21-32); CHLORIDE SERUM 99 mmol/L (98-107); CREATININE SERUM 0.7 mg/dL (0.6-1.0); GFR1 > 60 mL/min; GLUCOSE SERUM 133 mg/dL (74-106); MAGNESIUM 2.4 mg/dL (1.8-2.4); POTASSIUM SERUM 4.3 mmol/L (3.5-5.1); SODIUM SERUM 133 mmol/L (136-145)
[2020-07-30 08:32] VITALS: BP 127/55
[2020-07-30 11:52] VITALS: BP 108/55
[2020-07-30 16:23] VITALS: BP 149/76
[2020-07-30 20:51] VITALS: BP 128/43
[2020-07-31 06:08] VITALS: BP 148/54
[2020-07-31 07:00] LABS: BASOPHIL % 0.2 % (0-2); PLATELET COUNT 215 x10^3mcL (130-400)
[2020-07-31 07:09] LABS: RED CELL DISTRIBUTION WIDTH 17.2 % (11.5-14.5)
[2020-07-31 07:25] LABS: CALCIUM 8.5 mg/dL (8.5-10.1); CARBON DIOXIDE 25.3 mmol/L (21-32); CHLORIDE SERUM 98 mmol/L (98-107); CREATININE SERUM 0.7 mg/dL (0.6-1.0); GFR1 > 60 mL/min; GLUCOSE SERUM 168 mg/dL (74-106); POTASSIUM SERUM 4.1 mmol/L (3.5-5.1); SODIUM SERUM 132 mmol/L (136-145)
[2020-07-31 08:09] VITALS: BP 125/52
[2020-07-31] MEDS ORDERED: VENTOLIN H0.09 MG/A1 INH (08:34)
[2020-07-31] MEDS ORDERED: LIPI10 PO (08:35)
[2020-07-31] MEDS ORDERED: LOP50 PO (08:36)
[2020-07-31] MEDS ORDERED: AZITHROMYCIN500 M3 PO (08:37)
[2020-07-31] MEDS ORDERED: MEDROL DOSEPAK4 MG PO (08:38)
[2020-07-31 11:49] VITALS: BP 127/48
[2020-07-31 12:50] VITALS: BP 127/48
== END 2020-07-31 14:00 | DRG 133 ==
LOC: ED 17:39 → DU 20:34
PROVIDERS: Emergency Medicine; ADMIT Student in an Organized Health Care Education/Training Program; ATTEND Student in an Organized Health Care Education/Training Program
DX: J96.21 Acute and chronic respiratory failure with hypoxia (principal); G93.41 Metabolic encephalopathy; L89.159 Pressure ulcer of sacral region, unspecified stage; J84.10 Pulmonary fibrosis, unspecified; I48.91 Unspecified atrial fibrillation; G40.909 Epilepsy, unspecified, not intractable, without status epilepticus; E66.9 Obesity, unspecified; E78.5 Hyperlipidemia, unspecified; Z20.828 Contact with and (suspected) exposure to other viral communicable diseases; I10 Essential (primary) hypertension; E87.6 Hypokalemia; R62.50 Unspecified lack of expected normal physiological development in childhood; G80.9 Cerebral palsy, unspecified; Z87.01 Personal history of pneumonia (recurrent); Z87.440 Personal history of urinary (tract) infections; Z79.899 Other long term (current) drug therapy; Z79.891 Long term (current) use of opiate analgesic; Z79.82 Long term (current) use of aspirin; Z79.01 Long term (current) use of anticoagulants; Z88.8 Allergy status to other drugs, medicaments and biological substances; Z88.0 Allergy status to penicillin
CPT/HCPCS: 83880; 84439; 85378; 92526-GN; 92610-GN; G0378; G0480; J0456; J1100; J3370; J3535; J7040; Q0092; U0003-CS